=== PATIENT | female | born 1970 | race Caucasian/White ===

== ENCOUNTER 2019-12-02 13:48 | Emergency (ER) | payer OTHER ==
[~2019-12-02] VITALS: Ht 177.8 cm; Wt 62.0 kg
--- NOTE | 2019-12-02 13:48 | NUR ---
INITIAL CONTACT WITH PT. BEDOYA FROM [facility] FOR A MEDICAL CLEARANCE. PT STATES SHE WENT TO [facility] TODAY TO GO TO "ALCOHOL DETOX AND FOR SUICIDAL THOUGHTS, I WANTED TO KILL MYSELF LAST NIGHT". PT WAS PLACED ON A LEGAL HOLD AT [facility]. PT STATES THAT LAST NIGHT, "I HAD A PLAN TO SHOOT MYSELF, I DONT HAVE A GUN BUT IF I DID, I WOULD HAVE PULLED THE TRIGGER". PT DOES NOT OWN A GUN OR HAVE ACCESS TO A GUN. PT BELONGINGS PLACED IN A BAG X1 AND PLACED IN THE APPROPRIATE LOCKER. PT DOES HAVE A CANE OUTSIDE THE DOOR WITH SITTER AND GLASSES ON. ATTEMPTED TO COLLECT URINE SAMPLE, PT UNABLE TO VOID AT THIS TIME. SAFETY ALLRED IN PLACE, SUICIDE PRECAUTIONS PLACED AND SITTER WITHIN VIEW. PT DENIES ANY NEEDS AT THIS TIME. WILL CON TINUE TO MONITOR.
[2019-12-02 14:37] LABS: BASOPHILS # (AUTO) 0.04 x10^3/uL (0-0.1); BASOPHILS % (AUTO) 0 % (0-1); EOSINOPHILS # (AUTO) 0.03 x10^3/uL (0-0.4); EOSINOPHILS % (AUTO) 0 % (1-7); LYMPHOCYTES # (AUTO) 1.42 x10^3/uL (1-3.4); LYMPHOCYTES % (AUTO) 17 % (22-44); MD NO; MEAN CORPUSCULAR HEMOGLOBIN 34.3 pg (27.0-34.8); MEAN CORPUSCULAR HGB CONC 32.3 g/dL (32.4-35.8); MEAN PLATELET VOLUME 7.6 fL (7.4-10.4); MONOCYTES # (AUTO) 0.72 x10^3/uL (0.2-0.8); MONOCYTES % (AUTO) 8 % (2-9); NEUTROPHILS # (AUTO) 6.37 x10^3/uL (1.8-6.8); NEUTROPHILS % (AUTO) 74 % (42-75); PLATELET COUNT 413 x10^3/uL (130-400); RED BLOOD COUNT 3.96 x10^6/uL (3.82-5.3); RED CELL DISTRIBUTION WIDTH 13.6 % (9.6-15.2)
[2019-12-02 14:44] LABS: ALANINE AMINOTRANSFERASE 30 U/L (12-78); ALBUMIN 3.4 g/dL (3.4-5.0); ANION GAP 10 mmol/L (5-15); CHLORIDE 98 mmol/L (98-107); CREATININE 0.55 mg/dL (0.55-1.02)
[2019-12-02 14:45] LABS: SALICYLATE LEVEL < 1.7 mg/dL (2.8-20.0)
[2019-12-02 14:55] LABS: ALKALINE PHOSPHATASE 97 U/L (45-117); BILIRUBIN,TOTAL 0.8 mg/dL (0.2-1.0); TOTAL PROTEIN 8.3 g/dL (6.4-8.2)
--- NOTE | 2019-12-02 15:00 | NUR ---
PT SITTING IN BED COMFORTABLY, ABLE TO DOZE OFF. DENIES ANY ADDITIONAL NEEDS AT THIS TIME. WARM BLANKET PROVIDED PER REQUEST. SAFETY ALLRED IN PLACE AND SITTER WITHIN VIEW. WILL CONTINUE TO MONITOR.
[2019-12-02 15:09] LABS: FREE T4 (FREE THYROXINE) 1.62 ng/dL (0.76-1.46)
--- NOTE | 2019-12-02 15:35 | NUR ---
PT ON BEDSIDE COMMODE ATTEMPTING TO GIVE URINE SAMPLE.
--- NOTE | 2019-12-02 15:57 | NUR ---
PT UNABLE TO PROVIDE URINE SAMPLE, SITTING ON BEDSIDE COMMODE IN AN ADDITIONAL ATTEMPT TO PROVIDE URINE SAMPLE. NAD, NO ADDITIONAL NEEDS AT THIS TIME. SAFETY ALLRED DOWN AND IN PLACE, SITTER IN VIEW. WILL CONTINUE TO MONITOR.
--- NOTE | 2019-12-02 17:15 | NUR ---
URINE SAMPLE OBTAINED VIA STRAIGHT CATH PER MD ORDER, WALKED TO LAB. PT SITTING SUPINE IN GURNEY, GLASS OF WATER GIVEN PER PT REQUEST. PT DECLINED DINNER TRAY. PT DENIES NEED TO USE BATHROOM. NO ADDITIONAL NEEDS. SAFETY GATE IN PLACE, SITTER IN VIEW. WILL CONTINUE TO MONITOR.
[2019-12-02 17:49] LABS: AMPHETAMINE SCREEN, URINE Negative (Negative); BARBITURATE SCREEN, URINE Negative (Negative); BENZODIAZEPINE SCREEN, URINE Negative (Negative); CANNABINOID SCREEN, URINE Negative (Negative); COCAINE SCREEN, URINE Negative (Negative); METHADONE SCREEN, URINE Negative (Negative); OPIATE SCREEN, URINE Negative (Negative)
--- NOTE | 2019-12-02 18:04 | NUR ---
PT SLEEPING ON GURNEY. NO NEEDS AT THIS TIME. SAFETY PRECAUTIONS IN PLACE, SECURITY ALLRED DOWN. SITTER IN VIEW. WILL CONTINUE TO MONITOR.
[2019-12-02 18:10] LABS: MICROSCOPIC AUTO
--- NOTE | 2019-12-02 18:55 | NUR ---
BEDSIDE REPORT GIVEN TO MIREYA SOMMERS.
--- NOTE | 2019-12-02 20:33 | NUR ---
RN EXPLAINED TO WHY PT IS ON A PSYCH HOLD AND THAT PT IS HERE FOR SI STATMENTS . PT TOLD RN THAT PT WAS ONLY HERE FOR MEDICAL DETOX AND THAT SHE SHOULD BE ABLE TO GO BACK TO [facility]
--- NOTE | 2019-12-02 20:38 | NUR ---
PT WOULD LIKE TO BE CALLED IF PT IS TRANSFERED ANYWHERE YOVANY DUGAN [phone]
--- NOTE | 2019-12-02 20:55 | NUR ---
PEREZ RN: PACKET FAXED TO [facility], [facility], [facility], [facility].
--- NOTE | 2019-12-02 20:57 | NUR ---
PT RESTING IN BED, PT ED ROOM SI SECURE WITH SITTER AT PT DOOR. PT DDENIED ANY WANTS OR NEEDS AT THIS TIME
--- NOTE | 2019-12-02 22:41 | NUR ---
RN GOT CALLED FROM J[facility]AN FROM [facility] SAY DR HERNDON WOULD EXEPT PT A PATIENT THERE
--- NOTE | 2019-12-03 00:54 | NUR ---
PT TANSFERED TO [facility] WITH CANE, WHEELCHAIR AND PT BELONGINGS SENT WITH PT AND ZOE
--- NOTE | 2019-12-03 01:37 | NUR ---
PT TRANSFERED TO [facility]. JOHAN DENIED PT AT PT CONTACT DUE TO PT NEEDING A CANE TO AMBULATE AND A WHEELCHAIR AT TIMES WELL. PT STATED "SHE HAS NEUROPATHY AND CAN WALK 5 MIN AT A TIME BUT NEEDS TO REST AFTER BUT IS GETTING BETTER. JOHAN WAS AWARE OF THE PT'S NEUROPATHY AT RN TO RN
--- NOTE | 2019-12-03 04:02 | NUR ---
PT RESTING IN BED, PT ED ROOM SI SECURE WITH SITTER AT PT DOOR. PT DDENIED ANY WANTS OR NEEDS AT THIS TIME
--- NOTE | 2019-12-03 07:00 | NUR ---
REICEVED REPORT FROM TRACE SOMMERS. SITTER AT DOOR
--- NOTE | 2019-12-03 08:20 | NUR ---
PT SITTING UP IN BED. HAS LEGS BETWEEN RAILS IN BED RAIL. PT ASKING HOW TO REMOVE THE BEAULIEU TERESA. PT INFOMED SHE IS SITTING IN A GURNEY. PT UNABLE TO RECALL WHAT [place] IN. STATED SHE IS HERE FOR A [place]ING. PT ASKED TO TAKE HER LEGS OUT OF BED RAIL TO PREVENT INJURY. PT COMPLIED. SITTER AT DOOR.
--- NOTE | 2019-12-03 09:16 | NUR ---
PT GIVEN MEAL TRAY. PT HAS NOT EATEN YET. PT COOPERATIVE WITH VITALS AND ATTEMPTED TO BE COOPERATIVE WITH ASSESSMENT, PT JUST UNABLE TO ANSWER QUESTIONS APPROPRIATELY. SITTER AT DOOR.
[2019-12-03 09:17] VITALS: BP 146/98
--- NOTE | 2019-12-03 10:38 | NUR ---
ASKED FOR UPDATES WHEN POSSIBLE: [facility] DUGAN
--- NOTE | 2019-12-03 10:40 | NUR ---
IN ROOM TO PLACE PT ON HOSPITAL BED. PT WAS ABLE TO AMBULATE TO HALLWAY WITH CANE AND STANDBY ASSIST. PT WAS ABLE TO TOLERATE BODY WEIGHT ON LEGS AND AMBULATED WITH A SHUFFLED GAIT. TECH WAS AT PTS SIDE THROUGHOUT THIS TRANSFER
--- NOTE | 2019-12-03 10:48 | NUR ---
stopped by to check on pt. informed of status and transfer last night. expressed frustration that he was not contacted. reassured that this rn is with his until 10 pm and if there are any changes to her status he would be made aware.
--- NOTE | 2019-12-03 12:56 | NUR ---
TP RN NOTE: TRANSFER REQUEST TO [facility] DECLINED D/T "MEDICAL COMPLEXITY."
--- NOTE | 2019-12-03 13:57 | NUR ---
TP RN NOTE: PER U RN [facility] WILL NOT ACCEPT PT D/T INSURANCE.
--- NOTE | 2019-12-03 14:18 | NUR ---
PT RESTING COMFORTABLY IN BED. AWAITING LORI ARITA TO DC. PT AND PER LORI AGREE WITH POC. ROOM REMAINS SECURE. BELONGINGS IN LOCKER.
--- NOTE | 2019-12-03 14:25 | NUR ---
PT UP TO RESTROOM AT THIS TIME. PT AMBULATES WITH CANE AND STANDBY ASSIST.
--- NOTE | 2019-12-03 14:42 | NUR ---
TP RN NOTE: [facility] CALLED, ADMIT RN STATES THEY DO NOT HAVE ADMIT CAPABILITY TODAY.
--- NOTE | 2019-12-03 15:31 | NUR ---
ATTEMPT TO CONTACT . NO ANSWER LEFT MESSAGE
== END 2019-12-03 00:57 | disposition home or self-care (01) ==
LOC: ED 18:24
DX: R45.851 Suicidal ideations (principal); F32.9 Major depressive disorder, single episode, unspecified
CPT/HCPCS: 36415; 80053; 80307; 81001; 84439; 84443; 84703; 85025; 87086; 99283; 99284